=== PATIENT | female | born 1980 | race Caucasian/White ===

== ENCOUNTER 2021-05-11 14:24 | Emergency (ER) | payer OTHER ==
[2021-05-11] MEDS ORDERED: ALBUTEROL2.5 MG/0.5 INH (15:33)
[2021-05-11] MEDS ORDERED: MEDROLDOSEPACK PO (15:33)
[2021-05-11] MEDS ORDERED: PROAIR HFA8.5 GM INH ×2 (15:33→15:37)
[2021-05-11] MEDS ORDERED: ZPAK PO (15:33)
== END 2021-05-11 15:35 | disposition home or self-care (01) ==
LOC: ER 14:24
DX: J22 Unspecified acute lower respiratory infection (principal); R50.9 Fever, unspecified; Z20.822 Contact with and (suspected) exposure to COVID-19